=== PATIENT | male | born 1930 | race Caucasian/White ===

== ENCOUNTER 2018-05-18 19:27 | Emergency (ER) | payer MEDICARE, OTHER ==
[~2018-05-18] VITALS: Ht 185.4 cm; Wt 104.3 kg
[~2018-05-18 19:27] MED LIST: CHOL10002; CRANBERRY250 MG; Coenzyme Q10100 M1 PO; DOXY100 PO; FLUSAL2505 INH; IMIP50 PO; LEVSOD88 PO; MELA3; METO50; METO50ER PO; MSM1000 MG PO; OMEG1CAP30; OXYC15ER PO; POMEGRANATE250 MG PO; PUMPKIN SEED OIL; RESVERATROL50 MG PO; SERT50; TEMA15 PO
[2018-05-18 20:27] LABS: Source, Urine Clean Catch
[2018-05-18 20:35] LABS: BASOPHILS ABSOLUTE AUTO 0.01 K/mm3 (0.00-0.23); BASOPHILS PERCENT AUTO 0 % (0-2); EOSINOPHILS PERCENT AUTO 0 % (0-6); Hematocrit 44.4 % (37.0-53.0); Hemoglobin 15.1 g/dL (13.5-17.5); IMMATURE GRAN ABSOLUTE AUTO 0.01 K/mm3 (0.00-0.10); IMMATURE GRAN PERCENT AUTO 0 % (0-1); LYMPHOCYTES ABSOLUTE AUTO 2.39 K/mm3 (0.84-5.20); LYMPHOCYTES PERCENT AUTO 35 % (21-46); MONOCYTES ABSOLUTE AUTO 0.65 K/mm3 (0.16-1.47); MONOCYTES PERCENT AUTO 9 % (4-13); Mean Corpuscular Volume 106 fL (80-100); Mean Platelet Volume 9.9 fL (9.1-12.4); NEUTROPHILS ABSOLUTE AUTO 3.85 K/mm3 (1.96-9.15); NEUTROPHILS PERCENT AUTO 56 % (41-73); Platelet Count 192 K/mm3 (150-400); RDW Coefficient Variation 12.1 % (11.7-14.2); White Blood Cell Count 6.91 K/mm3 (4.00-11.30)
[2018-05-18 20:40] LABS: Appearance, Urine Cloudy (Clear); Blood, Urine 1+ (Neg); Color, Urine Yellow (P-Yellow); Glucose Qualitative, Urine Neg (Neg); Ketones, Urine Neg (Neg); Leukocyte Esterase, Urine 3+ (Neg); Nitrite, Urine Pos (Neg); Protein, Urine 2+ (Neg); Urobilinogen, Urine 1+ (Normal)
[2018-05-18 20:45] LABS: Alanine Aminotransfer (ALT/SGP 25 U/L (12-78); Albumin, Blood 3.1 g/dL (3.4-5.0); Albumin/Globulin Ratio 0.9 (0.8-1.8); Alk Phos 78 U/L (50-136); Anion Gap 7 mmol/L (6-16); Aspartate Aminotrans (AST/SGOT 19 U/L (12-37); Bilirubin, Total 0.4 mg/dL (0.1-1.0); Blood Urea Nitrogen 23 mg/dL (8-24); Bun/Creatinine Ratio 16.8 (12.0-20.0); CO2, Blood 25 mmol/L (21-32); Calcium, Blood 8.1 mg/dL (8.5-10.1); Chloride, Blood 106 mmol/L (98-108); Creatinine, Blood 1.37 mg/dL (0.60-1.20); Globulin, Blood 3.6 g/dL (2.2-4.0); Glomerular Filtration Rate 52 (60-); Glucose, Blood 100 mg/dL (70-99); Potassium, Blood 4.4 mmol/L (3.5-5.5); Sodium, Blood 138 mmol/L (136-145); Total Protein, Blood 6.7 g/dL (6.4-8.2); Troponin I <0.015 ng/mL (0.000-0.040)
[2018-05-18 20:50] LABS: Bilirubin, Urine 1+ (Neg)
[2018-05-18 20:51] LABS: Bacteria Many /hpf; Red Blood Cells, Urine 0-2 /hpf (0-2); Squamous Epithelial Cells Not Seen /hpf (Few); White Blood Cells, Urine TNTC /hpf (0-5)
[2018-05-18] MEDS ORDERED: CEPH500 PO (21:25)
== END 2018-05-18 23:23 | disposition home or self-care (01) ==
LOC: ER 19:27
PROVIDERS: Emergency Medicine
DX: N39.0 Urinary tract infection, site not specified (principal); I10 Essential (primary) hypertension; E03.9 Hypothyroidism, unspecified; Z87.891 Personal history of nicotine dependence; Z79.899 Other long term (current) drug therapy; Z79.891 Long term (current) use of opiate analgesic
CPT/HCPCS: 51701; 70450; 71046; 80053; 81001; 84484; 85025; 87077; 87086; 87186; 93005; 93010; 96361-59; 96365-59; 99285-25; J0696; J7030

== ENCOUNTER → 2018-06-16 | Outpatient (CLI) | payer MEDICARE, OTHER ==
[~2018-06-16] MED LIST changes: +CEPH500 PO
== END | disposition home or self-care (01) ==
LOC: LAB SHORT 18:00 → LAB 18:00
DX: R35.0 Frequency of micturition (principal)
CPT/HCPCS: 87077; 87086; 87186

== ENCOUNTER 2018-08-27 12:26 | Emergency (ER) | payer MEDICARE, OTHER ==
[~2018-08-27] VITALS: Ht 182.9 cm; Wt 108.9 kg
[~2018-08-27 12:26] MED LIST changes: -CHOL10002; +CHOL10002 PO; -METO50; +METO50 PO
[2018-08-27 12:52] LABS: BASOPHILS PERCENT AUTO 0 % (0-2); EOSINOPHILS PERCENT AUTO 0 % (0-6); Hematocrit 42.2 % (37.0-53.0); Hemoglobin 14.7 g/dL (13.5-17.5); IMMATURE GRAN ABSOLUTE AUTO 0.02 K/mm3 (0.00-0.10); IMMATURE GRAN PERCENT AUTO 0 % (0-1); LYMPHOCYTES PERCENT AUTO 14 % (21-46); MONOCYTES ABSOLUTE AUTO 0.52 K/mm3 (0.16-1.47); MONOCYTES PERCENT AUTO 7 % (4-13); Mean Corpuscular HGB 37.1 pg (26.0-34.0); Mean Corpuscular HGB Conc 34.8 g/dL (31.5-36.5); Mean Corpuscular Volume 107 fL (80-100); Mean Platelet Volume 9.6 fL (9.1-12.4); NEUTROPHILS ABSOLUTE AUTO 5.47 K/mm3 (1.96-9.15); NEUTROPHILS PERCENT AUTO 78 % (41-73); Platelet Count 179 K/mm3 (150-400); RDW Coefficient Variation 14.2 % (11.7-14.2); RDW Standard Deviation 55.2 fL (35.1-46.3); Red Blood Cell Count 3.96 M/mm3 (4.30-5.90); White Blood Cell Count 7.01 K/mm3 (4.00-11.30)
[2018-08-27] MEDS ORDERED: SYNTHROID100 MC1 PO (13:05)
[2018-08-27] MEDS ORDERED: PROZAC20 MG PO (13:06)
[2018-08-27] MEDS ORDERED: TEMA30 PO (13:06)
[2018-08-27 13:07] LABS: Alanine Aminotransfer (ALT/SGP 19 U/L (12-78); Albumin, Blood 3.1 g/dL (3.4-5.0); Albumin/Globulin Ratio 0.9 (0.8-1.8); Alk Phos 73 U/L (50-136); Anion Gap 4 mmol/L (6-16); Aspartate Aminotrans (AST/SGOT 19 U/L (12-37); Bilirubin, Total 0.6 mg/dL (0.1-1.0); Blood Urea Nitrogen 14 mg/dL (8-24); CO2, Blood 28 mmol/L (21-32); Calcium, Blood 8.3 mg/dL (8.5-10.1); Chloride, Blood 106 mmol/L (98-108); Creatinine, Blood 1.17 mg/dL (0.60-1.20); Globulin, Blood 3.5 g/dL (2.2-4.0); Glomerular Filtration Rate >60 (60-); Glucose, Blood 110 mg/dL (70-99); Potassium, Blood 4.1 mmol/L (3.5-5.5); Sodium, Blood 138 mmol/L (136-145); Total Protein, Blood 6.6 g/dL (6.4-8.2); Troponin I <0.015 ng/mL (0.000-0.040)
[2018-08-27 13:33] LABS: Source, Urine Voided
[2018-08-27 13:43] LABS: Bilirubin, Urine Neg (Neg); Blood, Urine Neg (Neg); Glucose Qualitative, Urine Neg (Neg); Ketones, Urine Neg (Neg); Leukocyte Esterase, Urine 1+ (Neg); Nitrite, Urine Neg (Neg); Protein, Urine Neg (Neg); Urobilinogen, Urine NORM (Normal); pH, Urine 6.5 (5.0-8.0)
[2018-08-27 13:56] LABS: Appearance, Urine Clear (Clear); Color, Urine Pale Yellow (P-Yellow)
[2018-08-27 14:00] LABS: Red Blood Cells, Urine Not Seen /hpf (0-2); Squamous Epithelial Cells Few /hpf (Few); White Blood Cells, Urine 0-2 /hpf (0-5)
[2018-08-27 14:01] LABS: Bacteria Rare /hpf
[2018-08-27] MEDS ORDERED: Ativan1 MG SL (16:34)
--- NOTE | 2018-08-27 16:44 | NUR ---
Initial Visit: Palliative Care Consult for Goals of Care. Spoke with Dr Main and he reports Pt would benefit from palliative care visit. Niece is primary caregiver and would benefit from support suggestions. Pt is A&O and denies pain at this time. Pt lives at home with his niece Kenia and her . Pt also receives caregiver assistance through Medicaid. 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 Listened as Kenia expressed concerns with Pt experiencing multiple falls and has developed significant tremors. Listened as Pt expresses frustrations regarding being independent for much of his life and now requires significant assistance. Validated concerns and offered emotional support. Rui reports Pt has an appointment at his home with [employer] worker on Tuesday for re-evaluation of needs. Suggested to Pt and Kenia receiving physical therapy through home health. Both express interest. Kenia reports Pt was just recently seen by his PCP Dr Briggs 10 days ago. Instructed Kenia to contact Dr Briggs's office first thing in the AM tomorrow and request referral. Kenia reports that family is considering placing Pt in an [facility] if Pt does not receive more caregiver hours and that herself and her are experiencing caregiver fatigue. Instructed Kenia to bring these concerns up with [employer] worker and discuss all options. Pt and Kenia express interest in completing an advanced directive. Educated Pt on life sustaing measures including risk factors. Helped Pt with completing part of AD and Kenia will help with rest once he has discussed who his healthcare representatives will be. No other concerns at this time. Palliative Care will remain available.
[2018-08-28] MEDS ORDERED: Miralax17 GM PO (17:00)
[2018-08-28] MEDS ORDERED: Zithromax250 MG PO (22:07)
== END 2018-08-27 17:00 | disposition home or self-care (01) ==
LOC: ER 12:26
PROVIDERS: Emergency Medicine
DX: R25.1 Tremor, unspecified (principal); F03.90 Unspecified dementia, unspecified severity, without behavioral disturbance, psychotic disturbance, mood disturbance, and anxiety; Z88.0 Allergy status to penicillin; Z88.1 Allergy status to other antibiotic agents; Z88.8 Allergy status to other drugs, medicaments and biological substances; Z79.899 Other long term (current) drug therapy; Z79.891 Long term (current) use of opiate analgesic; I10 Essential (primary) hypertension; E11.9 Type 2 diabetes mellitus without complications; Z87.891 Personal history of nicotine dependence
CPT/HCPCS: 71045; 80053; 81001; 83690; 84484; 85025; 87086; 93005; 93010; 96360; 99284-25; J2405; J7120

== ENCOUNTER 2018-08-28 19:14 | Observation (INO) | payer MEDICARE, OTHER ==
[~2018-08-28] VITALS: Ht 182.9 cm; Wt 99.0 kg
[~2018-08-28 19:14] MED LIST changes: +Ativan1 MG SL; +Miralax17 GM PO; +PROZAC20 MG PO; +SYNTHROID100 MC1 PO; +TEMA30 PO
[2018-08-28] MEDS ORDERED: Zithromax250 MG PO (22:07)
[2018-08-29] MEDS ORDERED: Prozac20 MG PO (04:45)
--- NOTE | 2018-08-29 06:02 | NUR ---
ASSOCIATE MERCHANDISER SUMMARY NEW ADMIT FROM THE ED TONIGHT. PT AAOX3 AND PLEASANT. PT CAME IN AFTER FALLING OUT OF A TAXI CAB AND HITTING HIS HEAD. PT HAS A SMALL LACERATION ON THE BACK OF HIS HEAD THAT IS NO LONGER BLEEDING. PT DENIES PAIN FROM THE AREA. PT ALSO FX PART OF TEMPORAL BONE SHOWN BY CT SCAN AND HAS SOME BLEEDING FROM HIS R EAR. PT ALSO REPORTS PAIN OF HIS L SHOULDER, SPOKE WITH DR GALVAN REGARDING POOR PAIN MANAGEMENT WITH TYLENOL AND RECIEVED ORDER FOR FENTANYL. PT REPORTS PAIN RELIEF WITH 25 MCG. PT WAS LIVING WITH NIECE BUT HAS HAD A FALLING OUT AND ALSO IS ALSO LOSING HIS APARTMENT AND A [facility] HOME AT THE END OF THE MONTH. PT WILL NEED HOUSING ARRANGED. PT IS A 2 ASSIST TO THE BSC. VSS, WILL CONTINUE TO MONITOR.
[2018-08-29] MEDS ORDERED: Roxicodone15 MG PO (10:47)
--- NOTE | 2018-08-29 17:22 | NUR ---
SHIFT SUMMARY PT UP TO CHAIR FOR LUNCH AND FOR SHORT TIME THIS MORNING AFTER BREAKFAST BY Raji DOZING ON AND OFF WHEN IN BED. OCCASIONALLY HEARD GRUNTING OR CURSING UNDER HIS BREATH WELL TALKING ON HIS CELL PHONE. SPOKE WITH HAILE WATTS AFTER RECEIVING PTS PERMISSION. HAILE EXPRESSES GREAT CONCERN ABOUT PT COMING BACK TO HIS APARTMENT DUE TO SAFETY REASONS AND REPORTS HE CAN'T LIVE WITH HER DUE TO HIS CARE BEING TO HIGH FOR HER TO BE ABLE TO HELP HIM. PT APPEARS ORIENTED UNTIL QUESTIONS ASKED WITH MEMORY REQUIREMENTS. ALSO KEEPS SAYING HES GONNA NEED SURGERY FROM THE FALL DESPITE BEING TOLD THERE WILL BE NO SURGERY. UNSTEADY ON HIS FEET WHEN HE FIRST GETS UP. FWW USED. REPORTS FEELING DIZZY WHEN HE FIRST STANDS WELL.
--- NOTE | 2018-08-30 05:09 | NUR ---
RING STRIKER SUMMARY PT AAOX3 AND PLEASANT. PT STILL EXPERIENCING SOME DIZZINESS AND BALANCE ISSUES DUE TO INJURY TO EAR, HOWEVER PT NO LONGER BLEEDING FROM THE AREA. 1 PERSON ASSIST W/ FWW TO THE BSC. Q12H OXYCONTIN DOING WELL TO MANAGE PT'S CHRONIC BACK PAIN. DID GIVE FENTANYL 25 MCG X1 FOR BREAKTHROUGH PAIN EARLY THIS AM. VSS, WILL CONTINUE TO MONITOR.
--- NOTE | 2018-08-30 17:33 | NUR ---
SHIFT SUMMARY PT UP TO CHAIR FOR MEALS TODAY AND TO USE URINAL. STILL UNSTEADY ON FEET WHEN STANDING. FWW USED WHEN AMBULATING. MEDICATING FOR PAIN PER ORDERS. NEEDS REMINDING TO USE CALL BUTTON AND THAT HE ISN'T STEADY ON HIS FEET ALONE. TALKING ON PHONE FREQUENTLY. NO FURTHER BLEEDING FROM EAR.
--- NOTE | 2018-08-30 19:48 | NUR ---
1920: Assumed care of patient. patient sitting up in chair in no apparent distress. patient denies pain at this time. Declines to go BTB at this time. call stern within reach.
--- NOTE | 2018-08-31 07:25 | NUR ---
RECEIVED REPORT AND ASSUMED CARE OF PATIENT. NOTED YAHAIRA PATIENT WAS VOIDED SMALL AMOUNTS AND POSSIBLE RETAINIG FLUIDS, SO DID A POST VOID RESIDUAL SEVERAL TIME THIS SHIFT WITH RESULTS FOLLOWS: 0130AM: 237 ML IN BLADDER 0420AM: 375 ML IN BLADDER 0630AM 273 ML IN BLADDER. ALSO: PATIENT SAYS HE SELF CATHS AT HOME. PASSED THIS INFO TO DAY NURSE SO THAT DR COULD ADD THE NECESSARY ORDERS.
--- NOTE | 2018-08-31 16:48 | NUR ---
PT IS A/OX2, SOMEWHAT FORGETFULL AND CONFUSED AT TIMES, THE PT IS A MINIMAL ASSIST UP TO THE CHAIR AND TO THE BATHROOM, THE WAS MEDICATED FOR PAIN SCHEDULED TODAY AND DID NOT C/O PAIN T/O THE DAY, THE PT APPEARS TO BE BREATHING EASILY ON RA, THE CALL LIGHT IS IN REACH BED ALARM ON WILL CONTINUE TO MONITOR AND ASSESS FOR CHANGES
--- NOTE | 2018-09-01 05:30 | NUR ---
SHIFT SUMMARY PT ALERT AND ORIENTED BUT CONFUSED AND FORGETFUL AT TIMES. BECOMES AGITATED AT TIMES. PT DID NOT SLEEP AT ALL THIS EVENING. EVEN AFTER EVENING SCHEDULED NARCOTICS AND MELATONIN. PT REPORTED THAT HE HAS NOT SLEPT FOR MULTIPLE NIGHTS. PT AMBULATES 1 ASSIST TO THE RESTROOM BUT IS SLOW MOVING AND UNSTEADY AT TIMES. PT USES FWW. PT INCONTINENT OCCASSIONALLY. PULL UP IN PLACE. DRIED BLOOD TO R EAR FROM FALL AT HOME. NO NEW BLEEDING NOTED. PT REPORTED LOWER BACK PAIN AT 8/10 BEFORE BED, MEDICATED WITH SCHEDULED OXYCONTIN. PT VERY CAPITAN GRANDE. SAT UP IN BED MOST OF THE NIGHT AND WATCHED T.V. SNACKED THROUGHOUT THE NIGHT ON COOKIES BROUGHT IN BY A FRIEND OR FAMILY MEMBER. NO ACUTE CHANGES THIS SHIFT. VITAL SIGNS STABLE. WILL CONTINUE TO MONITOR AND REPORT TO DAY RN.
--- NOTE | 2018-09-01 18:47 | NUR ---
SUMMARY- PT ALERT AND ORIENTED- IMPULSIVE AT TIMES RELATED TO GETTING TO THE BATHROOM IN TIME WITH URGENCY. MULT TRIPS TO THE BATHROOM WITH SMALL VOIDS EACH TIME. TOELRATING FOOD AND FLUIDS. UP IN CHAIR FOR MEALS. FAMILY IN TO VISIT. CHRONIC BACK PAIN CONTROLLED WITH MS CONTIN.
--- NOTE | 2018-09-02 07:37 | NUR ---
NOC SHIFT SUMMARY PT GETS CONFUSED AND AGITATED EASILY. HE WANTS TO WALK AND IS VERY UNSTREADY ON HIS FEET. HE SLEPT OFF AND ON THIS NIGHT. VOIDS OFTEN, EVERY HOUR OR TWO APPROX 100 TO 150ML. BLADDER SCAN SHOWED 41ML. VSS. APPEARS IN NO ACUTE DISTRESS. REPORT TO ONCOMING RN.
--- NOTE | 2018-09-02 17:52 | NUR ---
SHIFT SUMMARY: NO ACUTE CHANGES TO REPORT THIS SHIFT. PT HX DEMENTIA; A&O; OCCASIONAL IRRITABILITY; COOPERATIVE WITH CARE. CHRONIC BACK PAIN; SCHEDULED OXYCONTIN Q12. BLADDER SCAN Q SHIFT; PATIENT VOIDING SPONTANEOUSLY. PT UP TO BATHROOM c FWW & GAIT BELT; UNSTEADY GAIT; PATIENT CALLS APPROPRIATELY. PT HX FALLS; UNSAFE TO RETURN HOME ALONE; CARE MANAGERS WORKING SAFE D/C PLAN. WCTM.
--- NOTE | 2018-09-03 04:53 | NUR ---
NOC SHIFT SUMMARY PT IS ACTUALY MUCH MORE COOPERATIVE WITH CARE THIS NIGHT. HE HAS GOTTEN UP TO USE THE RESTROOM AND WHILE STILL UNSTEADY ON FEET SEEMS TO BE IMPROVED IN BALANCE. HAS SLEPT BETTER THIS NIGHT THOUGH HE STILL WAKES FREQUENTLY. VSS. NO COMPLAINTS OF PAIN OR DISCOMFORT. APPEARS IN NO ACUTE DISTRESS. WILL CONTINUE TO MONITOR.
--- NOTE | 2018-09-03 19:01 | NUR ---
SHIFT SUMMARY: NO ACUTE CHANGES TO REPORT THIS SHIFT. PT HX DEMENTIA; ALERT; IRRITABLE; OCC CONFUSION. MEDICATED FOR PAIN PER EMAR. PT UP WITH 1-ASSIST TO BATHROOM; UNSTEADY GAIT; HIGH FALL RISK. AWAITING PLACEMENT. REPORT GIVEN TO ONCOMING RN.
--- NOTE | 2018-09-04 07:39 | NUR ---
NOC SHIFT SUMMARY PT HAS BEEN PLEASANT THIS NIGHT. HE IS CONFUSED AND OFTEN FORGETS TO USE HIS CALL LIGHT. GETS UP TO URINATE OFTEN THROUGHOUT THE NIGHT. VSS. NOT ACUTE CHANGES NOTED THIS NIGHT. REPORT TO ONCOMING RN.
--- NOTE | 2018-09-04 16:26 | NUR ---
SHIFT SUMMARY- PT AXO X3. IRRITABLE AT TIMES. INTERMITTENT CONFUSION. BED ALARM ON. CALL LIGHT IN REACH. PT C/O R SHOULDER PAIN THIS AM. MEDS GIVEN PER EMAR. DENIES SOB. RESP E/U ON RA. DENIES N/V. 1 ASSIST WITH FWW AND GB TO THE BATHROOM. FAMILY IN TO VISIT THIS PM. NO OTHER SIGNIFICANT CHANGES THIS SHIFT.
--- NOTE | 2018-09-05 05:09 | NUR ---
SHIFT SUMMARY PATIENT IS ALERT AND CONFUSED. PATIENT CAN BE VERY IRRITABLE AND YELL AT STAFF. HE IS HARD OF HEARING. A SBA TO THE BATHROOM WITH FWW. PATIENT USES HIS CALL LIGHT AT TIMES. HAS A BED ALARM ON. PATIENT SLEPT OFF AND ON THROUGHOUT THE NIGHT. AT BEGINING OF SHIFT PATIENT COMPLAINED OF LEG PAIN AND ITCHINESS IN LEGS. HE APPLIED LOTION TO HIS LEGS AND STATES THAT THE ITCHINESS IS NOW GONE. VITALS STABLE. NO ACUTE CHANGES NOTED.
--- NOTE | 2018-09-05 11:35 | NUR ---
SUMMARY/DISCHARGE PT DISCHARGED TO [facility], PT WAS REFUSING TO LEAVE, STATING "NO-ONE HAS DISCUSSED WHAT'S GOING ON!" WITH HIM, [facility] GUIDE CAME AND SPOKE WITH THE PT AND THE PT'S NEPHEW BRITTANY CALLED AND SPOKE WITH HIM ON THE PHONE ABOUT HIS DISCHARGE, PT STILL HESITANT ABOUT LEAVING, [facility] TOOK THE PT VIA WHEELCHAIR AND NEPHEW WILL BE MEETING THE PT THERE TODAY
== END 2018-09-05 11:39 | disposition home or self-care (01) ==
LOC: ER 19:14 → MEDS 19:15 → ENPENDDIS 09-05 10:00 → MEDS 09-05 11:39
PROVIDERS: ADMIT Internal Medicine
DX: F03.91 Unspecified dementia, unspecified severity, with behavioral disturbance (principal); S02.19XA Other fracture of base of skull, initial encounter for closed fracture; H92.21 Otorrhagia, right ear; M54.9 Dorsalgia, unspecified; I10 Essential (primary) hypertension; E11.9 Type 2 diabetes mellitus without complications; E03.9 Hypothyroidism, unspecified; Z79.899 Other long term (current) drug therapy; Z88.0 Allergy status to penicillin; Z88.1 Allergy status to other antibiotic agents; Z88.8 Allergy status to other drugs, medicaments and biological substances; W20.8XXA Other cause of strike by thrown, projected or falling object, initial encounter
CPT/HCPCS: 36415; 70450; 83036; 84443; 93005; 93010; 94640; 94760; 96374; 96376; 97110; 97162; 97166; 97530; 97535; 99284; 99285-25; A9270; G0378; G0515; J3010

== ENCOUNTER 2018-10-11 10:30 | Emergency (ER) | payer MEDICARE, OTHER ==
[~2018-10-11] VITALS: Ht 185.4 cm; Wt 99.8 kg
[~2018-10-11 10:30] MED LIST changes: +Prozac20 MG PO; +Roxicodone15 MG PO; +Zithromax250 MG PO
[2018-10-11] MEDS ORDERED: HYDR1TAB94 PO (12:25)
== END 2018-10-11 15:45 | disposition home or self-care (01) ==
LOC: ER 10:30
DX: S01.111A Laceration without foreign body of right eyelid and periocular area, initial encounter (principal); S46.911A Strain of unspecified muscle, fascia and tendon at shoulder and upper arm level, right arm, initial encounter; I10 Essential (primary) hypertension; E11.9 Type 2 diabetes mellitus without complications; E03.9 Hypothyroidism, unspecified; Z79.899 Other long term (current) drug therapy; Z87.891 Personal history of nicotine dependence; Z88.0 Allergy status to penicillin; W06.XXXA Fall from bed, initial encounter
CPT/HCPCS: 12011; 70450; 72125; 73030; 90471; 90714; 99284-25; A9270-GY

== ENCOUNTER → 2018-11-14 | Outpatient (CLI) | payer MEDICARE, OTHER ==
[~2018-11-14] MED LIST changes: +HYDR1TAB94 PO
[2018-11-14 14:55] LABS: Source, Urine Clean Catch
[2018-11-14 15:03] LABS: Bilirubin, Urine Neg (Neg); Blood, Urine Neg (Neg); Glucose Qualitative, Urine Neg (Neg); Ketones, Urine Neg (Neg); Leukocyte Esterase, Urine 2+ (Neg); Nitrite, Urine Pos (Neg); Protein, Urine Neg (Neg); Urobilinogen, Urine NORM (Normal)
[2018-11-14 15:18] LABS: Appearance, Urine Clear (Clear); Color, Urine Yellow (P-Yellow)
[2018-11-14 15:30] LABS: Bacteria Many /hpf; Red Blood Cells, Urine Not Seen /hpf (0-2); Squamous Epithelial Cells Few /hpf (Few)
== END ==
LOC: LAB 12:30 → LAB SHORT 12:30
DX: N39.0 Urinary tract infection, site not specified (principal)
CPT/HCPCS: 81001; 87077; 87086; 87186

== ENCOUNTER → 2019-03-22 | Outpatient (CLI) | payer MEDICARE, OTHER ==
[2019-03-22 15:31] LABS: Bilirubin, Urine Neg (Neg); Blood, Urine 1+ (Neg); Glucose Qualitative, Urine Neg (Neg); Ketones, Urine Neg (Neg); Leukocyte Esterase, Urine 3+ (Neg); Nitrite, Urine Pos (Neg); Protein, Urine Neg (Neg); Urobilinogen, Urine NORM (Normal)
[2019-03-22 15:42] LABS: Appearance, Urine Clear (Clear); Color, Urine Yellow (P-Yellow)
[2019-03-22 15:43] LABS: Bacteria Many /hpf; Red Blood Cells, Urine 0-2 /hpf (0-2); Squamous Epithelial Cells Few /hpf (Few)
== END | disposition home or self-care (01) ==
LOC: LAB 14:36 → LAB SHORT 14:36
DX: N39.0 Urinary tract infection, site not specified (principal)
CPT/HCPCS: 81001; 87077; 87086; 87186

== ENCOUNTER 2020-01-21 15:57 | Inpatient (IN) | payer MEDICARE, OTHER ==
[~2020-01-21] VITALS: Ht 188 cm; Wt 105.5 kg
[~2020-01-21 15:57] MED LIST changes: -CHOL10002 PO; +VITAMIN D31000 UNI1 PO
[2020-01-21 17:57] LABS: Source, Urine Clean Catch
[2020-01-21 18:09] LABS: BASOPHILS PERCENT AUTO 0 % (0-2); EOSINOPHILS PERCENT AUTO 0 % (0-6); Hematocrit 46.1 % (37.0-53.0); Hemoglobin 15.5 g/dL (13.5-17.5); IMMATURE GRAN ABSOLUTE AUTO 0.01 K/mm3 (0.00-0.10); IMMATURE GRAN PERCENT AUTO 0 % (0-1); LYMPHOCYTES ABSOLUTE AUTO 0.74 K/mm3 (0.84-5.20); LYMPHOCYTES PERCENT AUTO 15 % (21-46); MONOCYTES ABSOLUTE AUTO 0.94 K/mm3 (0.16-1.47); MONOCYTES PERCENT AUTO 19 % (4-13); Mean Corpuscular HGB 34.4 pg (26.0-34.0); Mean Corpuscular HGB Conc 33.6 g/dL (31.5-36.5); Mean Corpuscular Volume 102 fL (80-100); NEUTROPHILS ABSOLUTE AUTO 3.36 K/mm3 (1.96-9.15); NEUTROPHILS PERCENT AUTO 67 % (41-73); Platelet Count 160 K/mm3 (150-400); RDW Coefficient Variation 12.2 % (11.7-14.2); RDW Standard Deviation 46.4 fL (35.1-46.3); Red Blood Cell Count 4.51 M/mm3 (4.30-5.90); White Blood Cell Count 5.05 K/mm3 (4.00-11.30)
[2020-01-21 18:15] LABS: Appearance, Urine Cloudy (Clear); Bilirubin, Urine Neg (Neg); Blood, Urine 4+ (Neg); Color, Urine Amber (P-Yellow); Glucose Qualitative, Urine Neg (Neg); Ketones, Urine 1+ (Neg); Leukocyte Esterase, Urine 3+ (Neg); Nitrite, Urine Pos (Neg); Protein, Urine 2+ (Neg); Specific Gravity, Urine 1.025 (1.003-1.022); Urobilinogen, Urine NORM (Normal)
[2020-01-21 18:25] LABS: Albumin, Blood 3.2 g/dL (3.4-5.0); Albumin/Globulin Ratio 0.9 (0.8-1.8); Bilirubin, Total 0.5 mg/dL (0.1-1.0); Bun/Creatinine Ratio 16.8 (12.0-20.0); Calcium, Blood 8.4 mg/dL (8.5-10.1); Creatinine, Blood 1.25 mg/dL (0.60-1.20); Globulin, Blood 3.6 g/dL (2.2-4.0); Potassium, Blood 4.1 mmol/L (3.5-5.5); Total Protein, Blood 6.8 g/dL (6.4-8.2)
[2020-01-21 18:42] LABS: Bacteria Many /hpf; Influenza A, PCR Negative (NEGATIVE); Influenza B, PCR Negative (NEGATIVE); Resp Syncytial Virus, PCR Negative (NEGATIVE); SARS-Cov-2 (COVID-19) PCR, MMC Positive (NEGATIVE); Squamous Epithelial Cells Rare /hpf (Few)
[2020-01-21] MEDS ORDERED: NEURONTIN300 MG PO (21:17)
[2020-01-21] MEDS ORDERED: METO100ER PO (21:18)
[2020-01-21] MEDS ORDERED: IMIPRAMINE HCL50 MG PO (21:18)
[2020-01-21] MEDS ORDERED: ANORO ELLIPTA1 EAC1 INH (21:20)
[2020-01-21] MEDS ORDERED: FLUTICASONE-SA1 EAC9 INH (21:20)
[2020-01-21] MEDS ORDERED: OXYC10TA19 PO (21:21)
[2020-01-21] MEDS ORDERED: CRANBERRY500 M1 PO (21:26)
[2020-01-22 05:55] LABS: Anion Gap 5 mmol/L (6-16); Blood Urea Nitrogen 19 mg/dL (8-24); Bun/Creatinine Ratio 16.8 (12.0-20.0); CO2, Blood 27 mmol/L (21-32); Calcium, Blood 8.3 mg/dL (8.5-10.1); Chloride, Blood 106 mmol/L (98-108); Creatinine, Blood 1.13 mg/dL (0.60-1.20); Glomerular Filtration Rate >60 (60-); Glucose, Blood 105 mg/dL (70-99); Potassium, Blood 4.2 mmol/L (3.5-5.5); Sodium, Blood 138 mmol/L (136-145)
--- NOTE | 2020-01-22 06:31 | NUR ---
SHIFT SUMMARY- PT. NEW ADMIT FROM ED. COVID POS. HX OF DEMENTIA, ALERT WITH INTERMITTENT CONFUSION. C/O LLQ PAIN. MEDICATED PER EMAR 2X WITH MINIMAL EFFECT. PT. INCONT, ATTENDS IN PLACE. REPOSITIONED FOR COMFORT AND PRN. VSS, SATS FROM 91-92% ON RA. CALL LIGHT WITHIN REACH, SIDE RAILS UPX2, AND BED ALARM ON FOR SAFETY. WILL CONT TO MONITOR.
--- NOTE | 2020-01-22 16:47 | NUR ---
PATIENT A/O TO SELF AND FAMILY, FOLLOWS COMMANDS. TOLERATING ADA DIET, ABLE TO FEED SELF. LUNGS COARSE WITH CRACKLES THROUGHOUT, COUGH MORE PRODUCTIVE THROUGHOUT THE DAY. 2LO2 TO MAINTAIN SATS, RA AT BASELINE. REMDESIVIR AND DECADRON STARTED TODAY. PATIENT INCONTIENT AND WEARING ATTENDS, GROIN/SCROTUM REDENED. TRIED A CONDOM CATH, BUT PATIENT CONTINUES TO PULL OFF.TURNING Q2 HOURS. FWW WITH SBA AT BASELINE, PATIENT TOO WEAK AND PAINFUL TO GET UP TODAY. REPORTS PAIN TO L ABDOMEN, WORSE WITH MOVEMENT. OXYCODONE AND TYLENOL GIVEN TO TREAT. TAKES PILLS WHOLE WITH WATER. FALL PRECAUTIONS IN PLACE PER PROTOCOL.
--- NOTE | 2020-01-22 22:58 | NUR ---
ASSISTED FROM COMMODE TO BED EARLIER, IV ANTIBIOTIC INFUSING AT THIS TIME. PT WATCHING TV. CALL LIGHT IN REACH. ISOLATION PRECAUTIONS MAINTAINED FOR COVID 19.
--- NOTE | 2020-01-23 03:41 | NUR ---
SHIFT SUMMARY HAS BEEN RESTING QUIETLY WITH FEW INTERRUPTIONS. RECEIVED ANALGESICS X 1 OF THIS WRITING. ANTIBIOTICS INFUSED EARLIER. COVID 19 DROPLET PRECAUTIONS MAINTAINED. CALL LIGHT IN REACH. NO NOTED S/S ACUTE DISTRESS AT THIS TIME
[2020-01-23 06:08] LABS: Albumin, Blood 2.8 g/dL (3.4-5.0); Anion Gap 6 mmol/L (6-16); Blood Urea Nitrogen 22 mg/dL (8-24); Bun/Creatinine Ratio 20.4 (12.0-20.0); CO2, Blood 26 mmol/L (21-32); Calcium, Blood 8.3 mg/dL (8.5-10.1); Chloride, Blood 105 mmol/L (98-108); Creatinine, Blood 1.08 mg/dL (0.60-1.20); Glomerular Filtration Rate >60 (60-); Glucose, Blood 117 mg/dL (70-99); Phosphorus, Blood 2.4 mg/dL (2.5-4.9); Potassium, Blood 4.4 mmol/L (3.5-5.5); Sodium, Blood 137 mmol/L (136-145)
--- NOTE | 2020-01-23 14:09 | NUR ---
LEFT MESSAGE ON VOICE MAIL THAT PATIENT NEEDS NYSTATIN POWDER TO GROIN AREA. AWAITING ORDERS.
--- NOTE | 2020-01-23 18:48 | NUR ---
ALERT TO SELF. HX DEMENTIA. COOPERATIVE. ON R.A. UPPER CONGESTION. [facility] 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 TM
--- NOTE | 2020-01-24 03:22 | NUR ---
SHIFT SUMMARY: 89 Y/O MALE RESTED COMFORTABLY ALL SHIFT; PT ALERT AND ORIENTED X 2, ABLE TO FOLLOW SIMPLE VERBAL COMMANDS; DROPLET PRECAUTIONS MAINTAINED FOR POSITIVE COVID19; DENIES PAIN OR NAUSEA; BED ALARM APPLIED FOR SAFETY, BED LOW POSITION WITH CALL LIGHT AT SIDE.
--- NOTE | 2020-01-24 13:23 | NUR ---
Baseline Function - [facility]: Pt is a resident at [facility]. Spoke with Bj, nurse, at [facility]. She gave some information on the pt's baseline function at the facility prior to current illness. Pt is a "big chrissie." He is difficult to understand due to his ill-fitting dentures. Bj states that there are black stains on the dentures; this has been there on pt's first arrival to the facility. Bj reports that many staff members have attempted to get the black stains off, but to no avail. Bj reports that the dentures are too loose and clack together during speech. Pt is a very "messy" individual - makes a big mess during meal times and in his room. He uses a urinal and will "fill it all the way up" frequently. He feeds himself. He enjoys the large [facility] cups full of water. Enjoys juice from these big cups as well. The pt likes coffee. Bj reports that if he has these things available, he is much happier. Pt walks with a walker. He has frequent falls and has a stooped over posture. He is able to get up by himself, but will fall, per Bj. He prefers to be independent. He is usually oriented to self, place. This orientation sometimes waxes and wanes, but pt is usually oriented. Pt is able to make needs known and able to make decisions for himself, as his own spokesperson. As to disposition, pt is very short-tempered and displays explosive anger at times. Bj reports that the pt is very aware of his short-temperedness, but cannot seem to control the behavior until the anger subsides. He is then very apologetic. Bj is looking to see if a POLST form exists at the facility and will fax it if found.
--- NOTE | 2020-01-24 16:51 | NUR ---
ALERT. ORIENTED. FORGETFUL. USES CALL LIGHT APPROPRIATELY. INCONTINENT OF URINE AND STOOL. REDNESS TO SCROTUM LOOKING BETTER. ASSISTS WITH MOVING IN BED. COOPERATIVE. PLEASANT. MEDICATED FOR PAIN TO LEFT CHEST--STS FELL TWICE AT [place] INTO A CHAIR. STANDING ROCK. SOMETIMES DIFFICULT TO UNDERSTAND WHAT PATIENT IS SAYING. ON OXYGEN. [facility]
--- NOTE | 2020-01-24 18:40 | NUR ---
MAX. 2 PERSON ASSIST FROM BED TO CHAIR FOR DINNER USING WALKER. BED ALARM ON.
--- NOTE | 2020-01-24 22:49 | NUR ---
2030 PT ASSISTED BACK TO CHAIR X 2 ASSIST; TRANSFERRED VIA STAND, PIVOT INTO BED VIA WALKER; PTS LEGS VERY WEAK, UNABLE TO AMBULATE; ALERT TO PERSON ONLY, ABLE TO FOLLOW SIMPLE VERBAL COMMANDS ONLY; BED ALARM APPLIED FOR SAFETY.
--- NOTE | 2020-01-25 02:59 | NUR ---
SHIFT SUMMARY: 89 Y/O MALE RESTED COMFORTABLY ALL SHIFT; ALERT PERSON ONLY, ABLE TO FOLLOW REDIRECTIONS FROM STAFF; HAPPY AND COOPERATIVE; DROPLET PRECAUTIONS MAINTAINED; BED ALARM APPLIED, BED LOW POSITION WITH CALL LIGHT AT SIDE.
--- NOTE | 2020-01-25 17:18 | NUR ---
PT PLEASANT CONFUSED TODAY. PAIN MANAGED WITH AVAIL MEDS PER EMAR. HAS HAD PT/OT TODAY . NO NEW CONCERNS AT THIS TIME. BED IN LOW POSITION, CALL LITE IN REACH, BED ALARM ON FOR SAFETY
--- NOTE | 2020-01-25 23:52 | NUR ---
1999 89 Y/O MALE RESTING COMFORTABLY IN BED; CHEERFUL; ALERT AND ORIENTED X 2, ABLE TO FOLLOW SIMPLE VERBAL COMMANDS; PT ABLE STAND, PIVOT AND TRANSFER BACK TO BED VIA WALKER AND GAIT BELT X 2 STANDBY ASSIST.
--- NOTE | 2020-01-26 03:15 | NUR ---
SHIFT SUMMARY: 89 Y/O MALE RESTED COMFORTABLY ALL SHIFT; C/O BACK PAIN RATED 7/10 WITH ROXICODONE 10MG PO GIVEN WITH GOOD RELIEF NOTED; DENIES NAUSEA; PT SAT CHAIR BEGINNING OF SHIFT AND TOLERATED ACTIVITY WELL; PT REQUIRES TWO STANDBY ASSIST WITH ALL TRANSFERS FROM CHAIR TO BED POOR BALANCE IS NOTED; ALERT AND ORIENTED X 2, ABLE TO FOLLOW SIMPLE VERBAL COMMANDS; BED ALARM APPLIED, BED LOW POSITION WITH CALL LIGHT AT SIDE.
[2020-01-26] MEDS ORDERED: THERACRAN PO (04:15)
[2020-01-26] MEDS ORDERED: PROAIR DIGIHAL90 MCG INH (04:17)
[2020-01-26] MEDS ORDERED: OMEGA ACID PO (04:19)
--- NOTE | 2020-01-26 18:17 | NUR ---
SHIFT SUMMARY PT HAS AN OCCASIONAL COUGH WITH OCC SPUTUM PRODUCTION THAT APPEARS YELLOW/GREEN. DENIES SOB WITH ACTIVITY AND DOESN'T APPEAR SOB WHEN SPEAKING. EATING ADEQUATE AMOUNTS OF FOOD. IS ON RA.
--- NOTE | 2020-01-26 23:00 | NUR ---
0945 89 Y/O MALE RESTING COMFORTABLY IN BED; CHEERFUL; BED ALARM APPLIED FOR SAFETY; HAPPY AND COOPERATIVE.
--- NOTE | 2020-01-27 03:32 | NUR ---
SHIFT SUMMARY: 89 Y/O MALE RESTED COMFORTABLY ALL SHIFT; C/O BACK PAIN RATED 8/10 WITH ROXICODONE 10MG PO GIVEN TWICE WITH RELIEF FELT; ALERT AND ORIENTED X 2, ABLE TO FOLLOW SIMPLE VERBAL COMMANDS; PENDING POSSIBLE DISCHARGE BACK [facility]/27; BED ALARM APPLIED FOR SAFETY, BED LOW POSITION WITH CALL LIGHT AT SIDE.
[2020-01-27 09:37] LABS: Anion Gap 5 mmol/L (6-16); Blood Urea Nitrogen 24 mg/dL (8-24); Bun/Creatinine Ratio 24.1 (12.0-20.0); CO2, Blood 31 mmol/L (21-32); Calcium, Blood 8.4 mg/dL (8.5-10.1); Chloride, Blood 98 mmol/L (98-108); Creatinine, Blood 0.99 mg/dL (0.60-1.20); Glomerular Filtration Rate >60 (60-); Glucose, Blood 178 mg/dL (70-99); Sodium, Blood 134 mmol/L (136-145)
[2020-01-27 09:44] LABS: BASOPHILS ABSOLUTE AUTO 0.01 K/mm3 (0.00-0.23); BASOPHILS PERCENT AUTO 0 % (0-2); EOSINOPHILS PERCENT AUTO 0 % (0-6); Hematocrit 49.5 % (37.0-53.0); Hemoglobin 17.2 g/dL (13.5-17.5); IMMATURE GRAN ABSOLUTE AUTO 0.03 K/mm3 (0.00-0.10); IMMATURE GRAN PERCENT AUTO 0 % (0-1); LYMPHOCYTES ABSOLUTE AUTO 1.69 K/mm3 (0.84-5.20); LYMPHOCYTES PERCENT AUTO 22 % (21-46); MONOCYTES ABSOLUTE AUTO 0.41 K/mm3 (0.16-1.47); MONOCYTES PERCENT AUTO 5 % (4-13); Mean Corpuscular HGB 34.6 pg (26.0-34.0); Mean Corpuscular HGB Conc 34.7 g/dL (31.5-36.5); Mean Corpuscular Volume 100 fL (80-100); Mean Platelet Volume 10.2 fL (9.1-12.4); NEUTROPHILS PERCENT AUTO 73 % (41-73); Platelet Count 183 K/mm3 (150-400); RDW Coefficient Variation 11.8 % (11.7-14.2); RDW Standard Deviation 42.5 fL (35.1-46.3); Red Blood Cell Count 4.97 M/mm3 (4.30-5.90); White Blood Cell Count 7.84 K/mm3 (4.00-11.30)
--- NOTE | 2020-01-27 18:39 | NUR ---
SHIFT SUMMARY PT AWAKE MOST OF DAY WATCHING TV. REPORTS PAIN TO BACK AND THEN TO L ABDOMEN WHEN COUGHING. UP TO CHAIR FOR LUNCH TODAY. USED A FWW AND GAIT BELT. PT ABLE TO STAND SELF UP FROM BED AND AMBULATE TO CAR WITHIN 2 FEET. UPON RETURN TO BED AMBULATED APPROX 6 FT USING A FWW WITH SBA ONLY BOTH TIMES. NO RESP DISTRESS THROUGH DAY. INCONTINENT OF URINE. HOPES TO GO HOME TOMORROW.
--- NOTE | 2020-01-27 22:20 | NUR ---
ASSUMED CARE OF PATIENT AT APPROXIMATELY 1915 FROM GILDARDO Weber RN. PATIENT ALERT AND ORIENTED TO SELF, YEAR AND LOCATION. PATIENT VERY HARD OF HEARING. PATIENT DENIES PAIN, NAUSEA OR DIZZINESS. BEDREST; ATTENDS IN PLACED; COVID POSISTIVE ISOLATION. INCONTINENT. REPORTEDLY 1 ASSIST OUT OF BED W/ FWW AND GAIT BED. ROOM AIR; NO TELE. PIV S/L. PATIENT CURRENLTY RESING IN BED; CALL LIGHT IN REACH; BED IN LOWEST POSISTION; BED ALARM ON; WILL CONTINUE TO MONITOR AND ASSESS UNTIL END OF SHIFT.
[2020-01-28] MEDS ORDERED: ACET325 PO (12:06)
[2020-01-28] MEDS ORDERED: DEXA6 PO (12:07)
[2020-01-28] MEDS ORDERED: GUAI600T33 PO (12:08)
[2020-01-28] MEDS ORDERED: NYAMYC15 G1 TOP (12:09)
[2020-01-28] MEDS ORDERED: ONDA4ODT MM (12:10)
[2020-01-28] MEDS ORDERED: VISBIOME PROBIOTIC (12:11)
--- NOTE | 2020-01-28 13:47 | NUR ---
DISCHARGED TO [facility]. PT VERBALIZED UNDERSTANDING OF DISCHARGE ORDERS. ALL BELONGING WERE SENT WITH PATIENT AND TRANSPORT CO.
== END 2020-01-28 13:45 | disposition home or self-care (01) | DRG 177 ==
LOC: ER 15:57 → MEDS 15:58 → ENPENDDIS 01-28 11:47 → MEDS 01-28 13:45
PROVIDERS: Family Medicine; Internal Medicine; Physician Assistant; ADMIT Family Medicine
PROC: XW033E5 Introduction of Remdesivir Anti-infective into Peripheral Vein, Percutaneous Approach, New Technology Group 5 (ICD-10-PCS; principal; 2020-01-22)
PROC: 3E0333Z Introduction of Anti-inflammatory into Peripheral Vein, Percutaneous Approach (ICD-10-PCS; 2020-01-22)
DX: U07.1 COVID-19 (principal); J12.89 Other viral pneumonia; J96.01 Acute respiratory failure with hypoxia; N17.9 Acute kidney failure, unspecified; N39.0 Urinary tract infection, site not specified; B35.6 Tinea cruris; E03.9 Hypothyroidism, unspecified; F03.90 Unspecified dementia, unspecified severity, without behavioral disturbance, psychotic disturbance, mood disturbance, and anxiety; F32.9 Major depressive disorder, single episode, unspecified; I12.9 Hypertensive chronic kidney disease with stage 1 through stage 4 chronic kidney disease, or unspecified chronic kidney disease; E11.22 Type 2 diabetes mellitus with diabetic chronic kidney disease; N18.30 Chronic kidney disease, stage 3 unspecified; Z66 Do not resuscitate; Z87.891 Personal history of nicotine dependence; B96.20 Unspecified Escherichia coli [E. coli] as the cause of diseases classified elsewhere; R26.9 Unspecified abnormalities of gait and mobility
CPT/HCPCS: 0241U; 36415; 71045; 74177; 80048; 80053; 80069; 81001; 82947; 84145; 85025; 87077; 87086; 87186; 94640; 94760; 96365; 97110; 97162; 97166; 97530; 97535; 99285-25; A9270; J0696; J1650; J1815; J7030; J7050; Q9967

== ENCOUNTER → 2020-03-24 | Outpatient (CLI) | payer MEDICARE, OTHER ==
[~2020-03-24] MED LIST changes: +ACET325 PO; +ANORO ELLIPTA1 EAC1 INH; +CRANBERRY500 M1 PO; +DEXA6 PO; +FLUTICASONE-SA1 EAC9 INH; +GUAI600T33 PO; +IMIPRAMINE HCL50 MG PO; +METO100ER PO; +NEURONTIN300 MG PO; +NYAMYC15 G1 TOP; +OMEGA ACID PO; +ONDA4ODT MM; +OXYC10TA19 PO; +PROAIR DIGIHAL90 MCG INH; +THERACRAN PO; +VISBIOME PROBIOTIC
[2020-03-24 15:45] LABS: Appearance, Urine Hazy (Clear); Bilirubin, Urine Neg (Neg); Blood, Urine 1+ (Neg); Color, Urine Yellow (P-Yellow); Glucose Qualitative, Urine Neg (Neg); Ketones, Urine Neg (Neg); Leukocyte Esterase, Urine 3+ (Neg); Nitrite, Urine Pos (Neg); Protein, Urine Neg (Neg); Urobilinogen, Urine NORM (Normal); pH, Urine 6.5 (5.0-8.0)
[2020-03-24 15:56] LABS: Bacteria Many /hpf; Squamous Epithelial Cells Few /hpf (Few); White Blood Cells, Urine 25-50 /hpf (0-5)
== END | disposition home or self-care (01) ==
LOC: LAB SHORT 13:58 → LAB 13:58
PROVIDERS: Physician Assistant
DX: N39.0 Urinary tract infection, site not specified (principal)
CPT/HCPCS: 81001; 87077; 87086; 87186

== ENCOUNTER → 2020-04-29 | Outpatient (CLI) | payer MEDICARE, OTHER ==
[2020-04-29 15:13] LABS: Appearance, Urine Clear (Clear); Blood, Urine 1+ (Neg); Color, Urine Yellow (P-Yellow); Glucose Qualitative, Urine Neg (Neg); Ketones, Urine 1+ (Neg); Leukocyte Esterase, Urine 3+ (Neg); Nitrite, Urine Pos (Neg); Protein, Urine 2+ (Neg); Specific Gravity, Urine 1.025 (1.003-1.022); Urobilinogen, Urine 1+ (Normal)
[2020-04-29 15:36] LABS: Bilirubin, Urine 1+ (Neg)
[2020-04-29 15:43] LABS: Bacteria Mod /hpf; Calcium Oxalate Crystals Mod /hpf; Squamous Epithelial Cells Rare /hpf (Few)
== END | disposition home or self-care (01) ==
LOC: LAB SHORT 11:55 → PLD 11:55
PROVIDERS: Physician Assistant
DX: N39.0 Urinary tract infection, site not specified (principal)
CPT/HCPCS: 81001; 87077; 87086; 87186

== ENCOUNTER → 2020-05-08 | Outpatient (CLI) | payer MEDICARE, OTHER ==
[2020-05-08 15:31] LABS: Appearance, Urine Clear (Clear); Bilirubin, Urine Neg (Neg); Blood, Urine Neg (Neg); Color, Urine Yellow (P-Yellow); Glucose Qualitative, Urine Neg (Neg); Ketones, Urine Neg (Neg); Leukocyte Esterase, Urine 1+ (Neg); Nitrite, Urine Neg (Neg); Protein, Urine Neg (Neg); Urobilinogen, Urine NORM (Normal)
[2020-05-08 15:53] LABS: Bacteria Rare /hpf; Red Blood Cells, Urine 0-2 /hpf (0-2); Squamous Epithelial Cells Few /hpf (Few); White Blood Cells, Urine 0-2 /hpf (0-5)
[2020-05-08 15:54] LABS: Calcium Oxalate Crystals Few /hpf; Mucus Light (0-Heavy)
== END | disposition home or self-care (01) ==
LOC: LAB SHORT 13:00 → LAB 13:00
PROVIDERS: Physician Assistant
DX: N39.0 Urinary tract infection, site not specified (principal)
CPT/HCPCS: 81001; 87077; 87086; 87186

== ENCOUNTER → 2020-10-02 | Outpatient (CLI) | payer MEDICARE, OTHER ==
[2020-10-02 09:32] LABS: Source, Urine Clean Catch
[2020-10-02 10:24] LABS: Appearance, Urine Hazy (Clear); Bilirubin, Urine Neg (Neg); Blood, Urine 1+ (Neg); Color, Urine Yellow (P-Yellow); Glucose Qualitative, Urine Neg (Neg); Ketones, Urine Neg (Neg); Leukocyte Esterase, Urine 3+ (Neg); Nitrite, Urine Pos (Neg); Protein, Urine 1+ (Neg); Urobilinogen, Urine NORM (Normal)
[2020-10-02 10:55] LABS: Bacteria Many /hpf; Red Blood Cells, Urine 0-2 /hpf (0-2); Squamous Epithelial Cells Rare /hpf (Few)
== END ==
LOC: LAB SHORT 09:30 → LAB 09:30
PROVIDERS: Physician Assistant
DX: N39.0 Urinary tract infection, site not specified (principal)
CPT/HCPCS: 81001; 87077; 87086; 87186

== ENCOUNTER 2021-01-10 07:43 | Emergency (ER) | payer MEDICARE, OTHER ==
[~2021-01-10] VITALS: Ht 182.9 cm; Wt 104.3 kg
[2021-01-10 08:27] LABS: BASOPHILS ABSOLUTE AUTO 0.01 K/mm3 (0.00-0.23); BASOPHILS PERCENT AUTO 0 % (0-2); EOSINOPHILS PERCENT AUTO 0 % (0-6); Hematocrit 44.9 % (37.0-53.0); Hemoglobin 15.4 g/dL (13.5-17.5); IMMATURE GRAN ABSOLUTE AUTO 0.02 K/mm3 (0.00-0.10); IMMATURE GRAN PERCENT AUTO 0 % (0-1); LYMPHOCYTES PERCENT AUTO 35 % (21-46); MONOCYTES ABSOLUTE AUTO 0.61 K/mm3 (0.16-1.47); MONOCYTES PERCENT AUTO 10 % (4-13); Mean Corpuscular HGB 35.6 pg (26.0-34.0); Mean Corpuscular HGB Conc 34.3 g/dL (31.5-36.5); Mean Corpuscular Volume 104 fL (80-100); Mean Platelet Volume 10.1 fL (9.1-12.4); NEUTROPHILS ABSOLUTE AUTO 3.32 K/mm3 (1.96-9.15); NEUTROPHILS PERCENT AUTO 55 % (41-73); Platelet Count 181 K/mm3 (150-400); RDW Coefficient Variation 12.1 % (11.7-14.2); RDW Standard Deviation 46.5 fL (35.1-46.3); Red Blood Cell Count 4.33 M/mm3 (4.30-5.90); White Blood Cell Count 6.06 K/mm3 (4.00-11.30)
[2021-01-10 08:41] LABS: Alanine Aminotransfer (ALT/SGP 25 U/L (12-78); Albumin, Blood 2.9 g/dL (3.4-5.0); Albumin/Globulin Ratio 0.7 (0.8-1.8); Alk Phos 77 U/L (50-136); Anion Gap 2 mmol/L (6-16); Aspartate Aminotrans (AST/SGOT 27 U/L (12-37); Bilirubin, Total 0.4 mg/dL (0.1-1.0); Blood Urea Nitrogen 26 mg/dL (8-24); Bun/Creatinine Ratio 21.8 (12.0-20.0); CO2, Blood 30 mmol/L (21-32); Calcium, Blood 8.2 mg/dL (8.5-10.1); Chloride, Blood 105 mmol/L (98-108); Creatinine, Blood 1.19 mg/dL (0.60-1.20); Globulin, Blood 4.2 g/dL (2.2-4.0); Glomerular Filtration Rate 58 (60-); Glucose, Blood 91 mg/dL (70-99); Potassium, Blood 4.7 mmol/L (3.5-5.5); Sodium, Blood 137 mmol/L (136-145); Total Protein, Blood 7.1 g/dL (6.4-8.2); Troponin I <0.015 ng/mL (0.000-0.040)
[2021-01-10 09:03] LABS: Influenza A, PCR NEGATIVE (NEGATIVE); Influenza B, PCR NEGATIVE (NEGATIVE); Resp Syncytial Virus, PCR NEGATIVE (NEGATIVE); SARS-Cov-2 (COVID-19) PCR, MMC NEGATIVE (NEGATIVE)
[2021-01-10] MEDS ORDERED: Zithromax250 MG PO (09:57)
[2021-01-10] MEDS ORDERED: CEFD300 PO (09:57)
== END 2021-01-10 11:30 | disposition home or self-care (01) ==
LOC: ER 07:43
PROVIDERS: Physician Assistant
DX: J18.9 Pneumonia, unspecified organism (principal); Z20.822 Contact with and (suspected) exposure to COVID-19; I10 Essential (primary) hypertension; E11.9 Type 2 diabetes mellitus without complications; E03.9 Hypothyroidism, unspecified; Z87.891 Personal history of nicotine dependence; Z88.0 Allergy status to penicillin; Z79.899 Other long term (current) drug therapy
CPT/HCPCS: 0241U; 71046; 80053; 83880; 84145; 84484; 85025; 93005; 93010; 96374; 99285-25; A9270; J2930

== ENCOUNTER → 2021-01-23 | Outpatient (CLI) | payer MEDICARE, OTHER ==
[~2021-01-23] MED LIST changes: +CEFD300 PO
[2021-01-23 15:30] LABS: Appearance, Urine Clear (Clear); Bilirubin, Urine Neg (Neg); Blood, Urine 1+ (Neg); Color, Urine Yellow (P-Yellow); Glucose Qualitative, Urine Neg (Neg); Ketones, Urine Neg (Neg); Leukocyte Esterase, Urine 1+ (Neg); Nitrite, Urine Pos (Neg); Protein, Urine 1+ (Neg); Specific Gravity, Urine 1.025 (1.003-1.022); Urobilinogen, Urine NORM (Normal)
[2021-01-23 15:49] LABS: Bacteria Many /hpf; Red Blood Cells, Urine 0-2 /hpf (0-2); Squamous Epithelial Cells Few /hpf (Few); Yeast/Fungi Urine Few /hpf
== END | disposition home or self-care (01) ==
LOC: LAB SHORT 09:50 → LAB 09:50
PROVIDERS: Physician Assistant
DX: N39.0 Urinary tract infection, site not specified (principal)
CPT/HCPCS: 81001; 87086

== ENCOUNTER → 2021-01-27 | Outpatient (CLI) | payer MEDICARE, OTHER ==
[2021-01-27 15:02] LABS: Source, Urine Clean Catch
[2021-01-27 16:37] LABS: Appearance, Urine Clear (Clear); Bilirubin, Urine Neg (Neg); Blood, Urine 1+ (Neg); Color, Urine Yellow (P-Yellow); Glucose Qualitative, Urine Neg (Neg); Ketones, Urine Neg (Neg); Leukocyte Esterase, Urine 2+ (Neg); Nitrite, Urine Pos (Neg); Protein, Urine 1+ (Neg); Urobilinogen, Urine NORM (Normal)
[2021-01-27 16:46] LABS: Bacteria Many /hpf; Calcium Oxalate Crystals Rare /hpf; Red Blood Cells, Urine 0-2 /hpf (0-2); Squamous Epithelial Cells Rare /hpf (Few)
== END ==
LOC: LAB SHORT 14:58
PROVIDERS: Physician Assistant
DX: N39.0 Urinary tract infection, site not specified (principal); Z88.0 Allergy status to penicillin; Z88.1 Allergy status to other antibiotic agents; Z88.8 Allergy status to other drugs, medicaments and biological substances
CPT/HCPCS: 81001; 87077; 87086; 87186